=== PATIENT | male | born 1945 | race Caucasian/White ===

== ENCOUNTER 2022-09-01 15:36 | Observation (INO) | payer OTHER ==
[~2022-09-01] VITALS: Ht 177.8 cm; Wt 75.1 kg
[2022-09-01 16:33] LABS: BASOPHILS ABSOLUTE AUTO 0.05 K/mm3 (0.00-0.23); BASOPHILS PERCENT AUTO 0 % (0-2); EOSINOPHILS ABSOLUTE AUTO 0.04 K/mm3 (0.00-0.68); EOSINOPHILS PERCENT AUTO 0 % (0-6); Hematocrit 36.2 % (37.0-53.0); Hemoglobin 12.8 g/dL (13.5-17.5); IMMATURE GRAN PERCENT AUTO 1 % (0-1); LYMPHOCYTES ABSOLUTE AUTO 0.76 K/mm3 (0.84-5.20); LYMPHOCYTES PERCENT AUTO 5 % (21-46); MONOCYTES ABSOLUTE AUTO 0.92 K/mm3 (0.16-1.47); MONOCYTES PERCENT AUTO 6 % (4-13); Mean Corpuscular HGB 29.9 pg (26.0-34.0); Mean Corpuscular HGB Conc 35.4 g/dL (31.5-36.5); Mean Corpuscular Volume 85 fL (80-100); Mean Platelet Volume 10.3 fL (9.1-12.4); NEUTROPHILS ABSOLUTE AUTO 14.59 K/mm3 (1.96-9.15); NEUTROPHILS PERCENT AUTO 89 % (41-73); Platelet Count 385 K/mm3 (150-400); RDW Coefficient Variation 13.3 % (11.7-14.2); RDW Standard Deviation 41.1 fL (35.1-46.3); Red Blood Cell Count 4.28 M/mm3 (4.30-5.90); White Blood Cell Count 16.46 K/mm3 (4.00-11.30)
[2022-09-01 16:51] LABS: Albumin, Blood 2.3 g/dL (3.4-5.0); Albumin/Globulin Ratio 0.5 (0.8-1.8); Bilirubin, Total 0.9 mg/dL (0.1-1.0); Bun/Creatinine Ratio 30.4 (12.0-20.0); Calcium, Blood 9.9 mg/dL (8.5-10.1); Creatinine, Blood 1.15 mg/dL (0.60-1.20); Globulin, Blood 5.1 g/dL (2.2-4.0); Potassium, Blood 4.5 mmol/L (3.5-5.5); Total Protein, Blood 7.4 g/dL (6.4-8.2)
[2022-09-01 22:37] LABS: Source, Urine Clean Catch
[2022-09-01 22:44] LABS: Appearance, Urine Clear (Clear); Bilirubin, Urine Neg (Neg); Blood, Urine Neg (Neg); Color, Urine Yellow (P-Yellow); Glucose Qualitative, Urine Neg (Neg); Ketones, Urine Neg (Neg); Leukocyte Esterase, Urine Neg (Neg); Nitrite, Urine Neg (Neg); Protein, Urine 1+ (Neg); Specific Gravity, Urine 1.015 (1.003-1.022); Urobilinogen, Urine NORM (Normal)
[2022-09-01 23:28] LABS: Influenza A, PCR NEGATIVE (NEGATIVE); Influenza B, PCR NEGATIVE (NEGATIVE); Resp Syncytial Virus, PCR NEGATIVE (NEGATIVE)
[2022-09-01 23:31] LABS: SARS-Cov-2 (COVID-19) PCR, MMC POSITIVE (NEGATIVE)
--- NOTE | 2022-09-02 07:33 | NUR ---
NEW ADMIT/OFFICE SERVICES ASSOCIATE SUMMARY PT ARRIVED T/ROOM AT 0419; A/OX4. LIVES AT HOME W/. NEW ADMIT F/HYPONATREMIA. PT REPORTS GOUT FLARE IN BLE'S, INTENSE PAIN WITH MOVEMENT, AND WEAKNESS. PT IS INDEPENDENT AT BASELINE BUT REQ BEDREST AT THIS TIME. PT XFERED TO BED W/SLIDER SHEET AND 3 STAFF. PT USING URINAL INDEPENDENTLY AND REQ BEDPAIN F/BM. LACTIC ACID 2.5. HX OF DMT2; PT BLOOD SUGARS ELEVATED--CBG 322. CALL T/DR DEE; NEW ORDER FOR FENTANYL 25-50MCG Q4 F/PAIN AND ONE TIME DOSE OF GLARGINE 15 UNITS. ORIENTED PT TO ROOM AND CALL LIGHT. PT PLEASANT AND COOPERATIVE WITH CARE. ABLE TO MAKE NEEDS KNOWN. BED LOCKED/LOW. CALL LIGHT IN REACH.
[2022-09-02 07:58] LABS: BASOPHILS ABSOLUTE AUTO 0.01 K/mm3 (0.00-0.23); BASOPHILS PERCENT AUTO 0 % (0-2); EOSINOPHILS ABSOLUTE AUTO 0.01 K/mm3 (0.00-0.68); EOSINOPHILS PERCENT AUTO 0 % (0-6); Hematocrit 33.1 % (37.0-53.0); Hemoglobin 11.6 g/dL (13.5-17.5); IMMATURE GRAN ABSOLUTE AUTO 0.06 K/mm3 (0.00-0.10); IMMATURE GRAN PERCENT AUTO 1 % (0-1); LYMPHOCYTES ABSOLUTE AUTO 0.53 K/mm3 (0.84-5.20); LYMPHOCYTES PERCENT AUTO 4 % (21-46); MONOCYTES ABSOLUTE AUTO 0.25 K/mm3 (0.16-1.47); MONOCYTES PERCENT AUTO 2 % (4-13); Mean Corpuscular HGB 29.7 pg (26.0-34.0); Mean Corpuscular Volume 85 fL (80-100); Mean Platelet Volume 9.7 fL (9.1-12.4); NEUTROPHILS ABSOLUTE AUTO 11.94 K/mm3 (1.96-9.15); NEUTROPHILS PERCENT AUTO 93 % (41-73); Platelet Count 297 K/mm3 (150-400); RDW Coefficient Variation 13.3 % (11.7-14.2); RDW Standard Deviation 41.1 fL (35.1-46.3)
[2022-09-02 08:18] LABS: Albumin, Blood 2.1 g/dL (3.4-5.0); Albumin/Globulin Ratio 0.5 (0.8-1.8); Bilirubin, Total 0.5 mg/dL (0.1-1.0); Bun/Creatinine Ratio 34.1 (12.0-20.0); Calcium, Blood 9.3 mg/dL (8.5-10.1); Creatinine, Blood 1.35 mg/dL (0.60-1.20); Globulin, Blood 4.5 g/dL (2.2-4.0); Potassium, Blood 4.4 mmol/L (3.5-5.5); Total Protein, Blood 6.6 g/dL (6.4-8.2)
[2022-09-02] MEDS ORDERED: INSULANI (13:22)
[2022-09-02] MEDS ORDERED: ALLO100 PO (13:24)
--- NOTE | 2022-09-02 18:30 | NUR ---
SHIFT SUMMARY- PT IS A/O, PLESANT AND COOPERATIE. HE IS EATING AND DRINKING WELL. HIS BLOOD SUGARS HAVE BEEN ELEVATED AND REQUIRED COVERAGE. ISOLATION FOR COVID HAS BEEN MAINTAINED. HIS SODIUM LEVELS HAVE INCREASED FROM 124 TO 130. HIS BED IS IN THE LOW POSITION AND CALL LIGHT IS WITHIN REACH.
--- NOTE | 2022-09-03 04:25 | NUR ---
RN HOME HEALTH SUMMARY: A&Ox4. PLEASANT AND COOPERATIVE WITH CARE. CALLS APPROPRIATELY AND IS ABLE TO ADVOCATE NEEDS APPROPRIATELY. VOIDING AND STOOLING WITHOUT DIFFICULTY. INDEPENDENT WITH AMBULATION. NO REQUEST FOR PAIN MANAGEMENT FOR GOUT PAIN AND CONTINUES TO BE ASYMPTOMATIC OF COVID Sx. ATE 90% OF DINNER TRAY. BEDTIME GLUCOSE 261 AND ROUTINE 15u LANTUS ADMINISTERED. VSS. SCHEDULED FOR AM LABS. NO ACUTE EVENTS T/O THE NIGHT. WILL REPORT TO ONCOMING RN.
[2022-09-03 06:04] LABS: BASOPHILS ABSOLUTE AUTO 0.02 K/mm3 (0.00-0.23); BASOPHILS PERCENT AUTO 0 % (0-2); EOSINOPHILS ABSOLUTE AUTO 0.13 K/mm3 (0.00-0.68); EOSINOPHILS PERCENT AUTO 1 % (0-6); Hematocrit 32.3 % (37.0-53.0); Hemoglobin 11.6 g/dL (13.5-17.5); IMMATURE GRAN ABSOLUTE AUTO 0.11 K/mm3 (0.00-0.10); IMMATURE GRAN PERCENT AUTO 1 % (0-1); LYMPHOCYTES PERCENT AUTO 15 % (21-46); MONOCYTES ABSOLUTE AUTO 0.75 K/mm3 (0.16-1.47); MONOCYTES PERCENT AUTO 6 % (4-13); Mean Corpuscular HGB 30.3 pg (26.0-34.0); Mean Corpuscular HGB Conc 35.9 g/dL (31.5-36.5); Mean Corpuscular Volume 84 fL (80-100); NEUTROPHILS PERCENT AUTO 76 % (41-73); Platelet Count 347 K/mm3 (150-400); RDW Coefficient Variation 13.3 % (11.7-14.2); RDW Standard Deviation 41.4 fL (35.1-46.3); Red Blood Cell Count 3.83 M/mm3 (4.30-5.90); White Blood Cell Count 11.71 K/mm3 (4.00-11.30)
[2022-09-03 06:28] LABS: Albumin, Blood 2.2 g/dL (3.4-5.0); Anion Gap 7 mmol/L (6-16); Blood Urea Nitrogen 52 mg/dL (8-24); Bun/Creatinine Ratio 41.3 (12.0-20.0); CO2, Blood 24 mmol/L (21-32); Calcium, Blood 9.7 mg/dL (8.5-10.1); Chloride, Blood 101 mmol/L (98-108); Creatinine, Blood 1.26 mg/dL (0.60-1.20); Glomerular Filtration Rate 59 (60-); Glucose, Blood 277 mg/dL (70-99); Potassium, Blood 4.2 mmol/L (3.5-5.5); Sodium, Blood 132 mmol/L (136-145)
--- NOTE | 2022-09-03 18:16 | NUR ---
SHIFT SUMMARY- PT IS A/O, PLESANT AND COOPERATIVE. HE IS EATING AND DRINKING WELL. HE IS VOIDING WELL. PT REPORTED THAT HE FELT CONSTIPATED. BOWEL CARE ORDERED. HIS SODIUM IS TRENDING UP. HE SAT ON THE EDGE OF THE BED FOR MEALS TODAY. PT WORKED WITH HIM THIS SHIFT RECOMENDED SNF UPON DISCHARGE. HIS BED IS IN THE LOW POSITON AND CALL LIGHT IS WITIN REACH.
[2022-09-04 05:49] LABS: Albumin, Blood 2.3 g/dL (3.4-5.0); Anion Gap 8 mmol/L (6-16); Blood Urea Nitrogen 43 mg/dL (8-24); Bun/Creatinine Ratio 38.4 (12.0-20.0); CO2, Blood 25 mmol/L (21-32); Calcium, Blood 9.6 mg/dL (8.5-10.1); Chloride, Blood 103 mmol/L (98-108); Creatinine, Blood 1.12 mg/dL (0.60-1.20); Glomerular Filtration Rate 68 (60-); Glucose, Blood 183 mg/dL (70-99); Phosphorus, Blood 2.2 mg/dL (2.5-4.9); Sodium, Blood 136 mmol/L (136-145)
--- NOTE | 2022-09-04 06:17 | NUR ---
ZOE IS A VERY QUIET GENTLEMAN WHO APPEARS NOT TO WANT TO "BOTHER" ANYONE. HE WILL, WITH SOME COAXING MAKE HIS NEEDS KNOWN TO STAFF WHEN WE ARE IN THE ROOM. NO COMPLAINTS OF PAIN OR DISCOMFORT. VERY FLAT AFFECT. LUNG SOUNDS CLEAR. DIM IN BASES. ROOM AIR. NO VISIBLE SIGNS OF COVID NOTED. URINE CLEAR. GOOD APPETITE
--- NOTE | 2022-09-05 07:14 | NUR ---
NO EXCEPTIONAL CHANGES OF NOTE OVERNIGHT. PATIENT REMAINS VERY DOWN,FLAT CONVERSATION OR ASSESSMENT. OFFERED PATIENT TYLENOL, BUT HE FELT IT "WOULDN'T DO ENOUGH GOOD". 0.5MG FENTANYL WAS GIVEN WITH GOOD RELIEF
--- NOTE | 2022-09-05 12:45 | NUR ---
DR GALLEGOS ROUNDED ON PATIENT, MEDICATED FOR CONSTIPATION WITH MOM AND SUPP, PATIENT EATING LUNCH NOW, NO ACUTE CHANGES
--- NOTE | 2022-09-05 18:18 | NUR ---
ALERT AND ORIENTED, MAKES NEEDS KNOWN, USES CALL LLIGHT, WORKED WITH PT TODAY WITH STAIRS. AT BEDSIDE, PATIENT TO BE DISCHARGED ON WEDNESDAY [facility] MEDICATED WITH TYLENOL X 2 TODAY FOR ANDREW LOWER LEG PAIN. STAND BY ASSIST TO THE BATHROOM, MEDICATED WITH MOM AND DOLCULAX SUPP. CALL LIGHT WITH IN REACH, WILL RELAY TO PM RN
--- NOTE | 2022-09-06 03:25 | NUR ---
ZOE APPEARS TO FEEL A LITTLE BETTER THIS EVENING. HE HAS ONLY REQUIRED TYLENOL OPPOSED TO THE FENTANYL HE WAS RECEIVING LAST NIGHT. AFFECT ALSO IMPROVED. PATIENT DID NOT SEEM TO BE SO FLAT OR DEPRESSED. SLEPT WELL OVERNIGHT. STILL NO S/S OF COVID.
--- NOTE | 2022-09-06 18:23 | NUR ---
NO ACUTE CHANGES, PLAN FOR DISCHARGE HOME TOMORROW WITH HOME HEALTH, AT BEDSIDE HELPFUL WITH CARE, WORKED WITH PT, DID STAIRS- LEFT LEG WEAKER THAN RIGHT. CALL LIGHT WITH IN REACH
--- NOTE | 2022-09-07 05:43 | NUR ---
PATIENT REMAINS UNCHANGED. STILL PAINFUL WITH MINIMAL AMBULATION. REQUIRED NO IV PAIN MEDICATION OVERNIGHT. ZOE IS VERY QUIET AND TO HIMSELF. NERVOUS ABOUT GOING HOME TODAY
[2022-09-07] MEDS ORDERED: HUMALOG KW100 UNIT/1 SC (12:19)
[2022-09-07] MEDS ORDERED: Prednisone10 MG PO (12:20)
[2022-09-07] MEDS ORDERED: OMEP20ER PO (12:22)
--- NOTE | 2022-09-07 14:33 | NUR ---
DISCHARGE NOTE PT DISCHARGED TO HOME WITH HOME HEALTH TO HIS . PT WAS TRANSFERRED TO HIS 'S VEHICLE VIA WHEELCHAIR. HIS IV WAS REMOVED BY LAST PUTTER AWAY SUCCESSFULLY. PT WAS PROVIDED DISCHARGE EDUCATION AND MEDICATIONS WERE FAXED TO THE PHARMACY OF HIS CHOICE. ALL HIS BELONGINGS WERE TAKEN WITH HIM.
== END 2022-09-07 14:19 | disposition home health service (06) ==
LOC: ER 15:36 → MEDS 15:37 → ERHOLD 15:37 → MEDS 15:37
PROVIDERS: Emergency Medicine; Family Medicine; Internal Medicine; ADMIT Internal Medicine
DX: M10.9 Gout, unspecified (principal); E87.1 Hypo-osmolality and hyponatremia; D64.9 Anemia, unspecified; U07.1 COVID-19; F31.9 Bipolar disorder, unspecified; Z79.4 Long term (current) use of insulin; D63.1 Anemia in chronic kidney disease; K59.00 Constipation, unspecified; Z20.822 Contact with and (suspected) exposure to COVID-19
CPT/HCPCS: 0241U; 36415; 71045; 80053; 80069; 82947; 83605; 83735; 84550; 85025; 87040; 93005; 93010; 96372; 96374; 96375; 97110; 97116; 97162; 97530; 99285-25; A9270; G0378; J0696; J1650; J1815; J3010; J7030; J7512

== ENCOUNTER 2023-02-15 13:49 | Inpatient (IN) | payer OTHER ==
[~2023-02-15] VITALS: Ht 180.3 cm; Wt 75.0 kg
[~2023-02-15 13:49] MED LIST: ALLO100 PO; HUMALOG KW100 UNIT/1 SC; INSULANI SC; OMEP20ER PO; Prednisone10 MG PO
[2023-02-15 14:35] LABS: BASOPHILS ABSOLUTE AUTO 0.04 K/mm3 (0.00-0.23); BASOPHILS PERCENT AUTO 0 % (0-2); EOSINOPHILS PERCENT AUTO 0 % (0-6); Hematocrit 39.7 % (37.0-53.0); Hemoglobin 13.8 g/dL (13.5-17.5); IMMATURE GRAN PERCENT AUTO 1 % (0-1); LYMPHOCYTES ABSOLUTE AUTO 0.55 K/mm3 (0.84-5.20); LYMPHOCYTES PERCENT AUTO 3 % (21-46); MONOCYTES PERCENT AUTO 7 % (4-13); Mean Corpuscular HGB Conc 34.8 g/dL (31.5-36.5); Mean Corpuscular Volume 86 fL (80-100); Mean Platelet Volume 10.9 fL (9.1-12.4); NEUTROPHILS ABSOLUTE AUTO 16.75 K/mm3 (1.96-9.15); NEUTROPHILS PERCENT AUTO 89 % (41-73); Platelet Count 192 K/mm3 (150-400); RDW Coefficient Variation 14.3 % (11.7-14.2); RDW Standard Deviation 44.6 fL (35.1-46.3); White Blood Cell Count 18.84 K/mm3 (4.00-11.30)
[2023-02-15 14:42] LABS: Albumin, Blood 3.6 g/dL (3.4-5.0); Albumin/Globulin Ratio 0.8 (0.8-1.8); Bilirubin, Total 1.9 mg/dL (0.1-1.0); Bun/Creatinine Ratio 16.8 (12.0-20.0); Calcium, Blood 9.6 mg/dL (8.5-10.1); Creatinine, Blood 1.25 mg/dL (0.60-1.20); Globulin, Blood 4.4 g/dL (2.2-4.0); Potassium, Blood 3.7 mmol/L (3.5-5.5)
[2023-02-15 17:02] LABS: Source, Urine Clean Catch
[2023-02-15 17:06] LABS: Appearance, Urine Clear (Clear); Bilirubin, Urine Neg (Neg); Blood, Urine 2+ (Neg); Color, Urine Amber (P-Yellow); Glucose Qualitative, Urine Neg (Neg); Ketones, Urine 2+ (Neg); Leukocyte Esterase, Urine Neg (Neg); Nitrite, Urine Neg (Neg); Protein, Urine 2+ (Neg); Specific Gravity, Urine 1.015 (1.003-1.022); Urobilinogen, Urine NORM (Normal)
[2023-02-15 17:18] LABS: Hyaline Casts 0-2 /lpf (0-2); Red Blood Cells, Urine 0-2 /hpf (0-2); Squamous Epithelial Cells Few /hpf (Few); White Blood Cells, Urine 0-2 /hpf (0-5)
[2023-02-15 17:19] LABS: Bacteria Few /hpf
[2023-02-15 18:21] LABS: Body Fluid Crystals NEG (NEGATIVE)
[2023-02-15 18:59] LABS: BODY FLUID RBC 0.003 M/mm3 (0-0)
[2023-02-15 19:10] LABS: RBC Count, Synovial Fluid 3000 /mm3 (0-0); WBC Count, Synovial Fluid 16320 /mm3 (0-180)
[2023-02-15 19:45] LABS: Lymphs, Synovial Fluid 1 % (0-15); Monocytes/Macrophages, Synovia 24 % (0-65); Neutrophils, Synovial Fluid 75 % (0-24)
[2023-02-15 19:46] LABS: Appearance, Synovial Fluid Cloudy (Clear); Color, Synovial Fluid Yellow (None-P Yel)
[2023-02-15 20:52] LABS: Influenza A, PCR NEGATIVE (NEGATIVE); Influenza B, PCR NEGATIVE (NEGATIVE); Resp Syncytial Virus, PCR NEGATIVE (NEGATIVE); SARS-Cov-2 (COVID-19) PCR, MMC NEGATIVE (NEGATIVE)
--- NOTE | 2023-02-15 21:58 | NUR ---
ADMIT NOTE 77 YR OLD MALE ADMITTED TO FLOOR FROM THE ED WITH DX OF SEPTIC ARTHRITIS. ED RN REPORTED RIGHT KNEE DRAINED OF FLUID AND BANDAID APPLIED. ALERT AND ORIENTED X 4. HX OF DM, GOUT AND HTN. ORIENTED TO USE OF CALL LIGHT. CALL LIGHT IN REACH.
[2023-02-15 22:43] VITALS: BP 128/94
[2023-02-15] MEDS ORDERED: METF500C PO (23:43)
[2023-02-15] MEDS ORDERED: ABILIFY MYCITE10 M2 PO (23:45)
[2023-02-15] MEDS ORDERED: COLCHICINE0.6 MG PO (23:49)
[2023-02-15] MEDS ORDERED: SENNA LAXATIVE8.6 MG PO (23:51)
[2023-02-15] MEDS ORDERED: OMEP20ER PO (23:52)
[2023-02-15] MEDS ORDERED: IBUP200 PO (23:53)
[2023-02-16 02:54] VITALS: BP 108/69
--- NOTE | 2023-02-16 03:25 | NUR ---
WET END OPERATOR SUMMARY VSS. ADMITTED EARLIER WITH RIGHT KNEE SEPTC ARTHRITIS AFTER KNEE FLUID DRAINED IN ED. PAIN MED ADMINISTERED - SEE MAR FOR DETAILS, MED EFFECTIVE, HAS BEEN RESTING QUIETLY WITH FEW INTERRUPTIONS. IVF OF NS INFUSING AT 125 ML/HR. VOIDING QS. MONITORING GLUCOSE LEVELS Q 6 HR. CALL LIGHT IN REACH. WILL CONTINUE TO MONITOR.
[2023-02-16 06:14] LABS: BASOPHILS ABSOLUTE AUTO 0.04 K/mm3 (0.00-0.23); BASOPHILS PERCENT AUTO 0 % (0-2); EOSINOPHILS ABSOLUTE AUTO 0.04 K/mm3 (0.00-0.68); EOSINOPHILS PERCENT AUTO 0 % (0-6); Hemoglobin 12.1 g/dL (13.5-17.5); IMMATURE GRAN ABSOLUTE AUTO 0.05 K/mm3 (0.00-0.10); IMMATURE GRAN PERCENT AUTO 0 % (0-1); LYMPHOCYTES ABSOLUTE AUTO 1.74 K/mm3 (0.84-5.20); LYMPHOCYTES PERCENT AUTO 14 % (21-46); MONOCYTES ABSOLUTE AUTO 1.15 K/mm3 (0.16-1.47); MONOCYTES PERCENT AUTO 9 % (4-13); Mean Corpuscular HGB 29.8 pg (26.0-34.0); Mean Corpuscular HGB Conc 34.6 g/dL (31.5-36.5); Mean Corpuscular Volume 86 fL (80-100); NEUTROPHILS ABSOLUTE AUTO 9.32 K/mm3 (1.96-9.15); NEUTROPHILS PERCENT AUTO 76 % (41-73); Platelet Count 162 K/mm3 (150-400); RDW Coefficient Variation 14.2 % (11.7-14.2); Red Blood Cell Count 4.06 M/mm3 (4.30-5.90); White Blood Cell Count 12.34 K/mm3 (4.00-11.30)
[2023-02-16 06:42] LABS: Albumin, Blood 2.8 g/dL (3.4-5.0); Albumin/Globulin Ratio 0.8 (0.8-1.8); Bun/Creatinine Ratio 17.5 (12.0-20.0); Creatinine, Blood 1.03 mg/dL (0.60-1.20); Globulin, Blood 3.7 g/dL (2.2-4.0); Magnesium, Blood 1.6 mg/dL (1.6-2.4); Potassium, Blood 3.8 mmol/L (3.5-5.5); Total Protein, Blood 6.5 g/dL (6.4-8.2)
[2023-02-16 07:59] VITALS: BP 121/63
[2023-02-16 15:14] VITALS: BP 137/75
--- NOTE | 2023-02-16 16:25 | NUR ---
DR JONA TENORIO CAME TO SEE PT. PLAN TO I&D RIGHT KNEE TOMORROW. NPO AFTER MIDNIGHT. CONTINUE POC.
--- NOTE | 2023-02-16 18:08 | NUR ---
EVENING THE AFTERNOON HAS WORN ON. PT HAS BECOME MORE PICKY, FIGITY, AND NEEDING REOEINTATION. AFTER DR TENORIO CAME. PT WANTED TO GET UP," GET HIS TOOLS TO GO HELP DR TENORIO." A BIT MORE FRETFUL. HE HAS REFUSED DINNER BECUSE HES GOING FOR SURGERY TONIGHT. REORIENTED TO TIME AND EVENT. BED ALARM ON. CONMTINUE POC.
[2023-02-16 19:23] VITALS: BP 147/89
[2023-02-17] VITALS (18 sets, daily range): BP systolic 87–133; BP diastolic 56–81
--- NOTE | 2023-02-17 04:30 | NUR ---
WET PROCESS TECHNICIAN SUMMARY NO ACUTE EVENTS THIS SHIFT. A&O TO SELF. PATIENT EFFECTIVELY COMMUNICATES NEEDS. RR EVEN AND UNLABORED ON RA. VSS. NS INFUSING @ 125ML/HR. APAP ADMINISTERED PER EMAR. CONTINENT WITH ASSISTANCE AND VOIDING WELL. PATIENT NOTED TO SLEEP WELL THROUGHOUT THE SHIFT WITHOUT ACUTE CONCERNS. BED LOW AND LOCKED. BED ALARM ON FOR SAFETY. CALL LIGHT WITHIN REACH. THIS RN WILL CONTINUE TO MONITOR.
[2023-02-17 05:14] LABS: BASOPHILS ABSOLUTE AUTO 0.03 K/mm3 (0.00-0.23); BASOPHILS PERCENT AUTO 0 % (0-2); EOSINOPHILS ABSOLUTE AUTO 0.04 K/mm3 (0.00-0.68); EOSINOPHILS PERCENT AUTO 0 % (0-6); Hematocrit 34.7 % (37.0-53.0); IMMATURE GRAN ABSOLUTE AUTO 0.05 K/mm3 (0.00-0.10); IMMATURE GRAN PERCENT AUTO 0 % (0-1); LYMPHOCYTES ABSOLUTE AUTO 1.26 K/mm3 (0.84-5.20); LYMPHOCYTES PERCENT AUTO 10 % (21-46); MONOCYTES ABSOLUTE AUTO 1.04 K/mm3 (0.16-1.47); MONOCYTES PERCENT AUTO 8 % (4-13); Mean Corpuscular HGB 29.9 pg (26.0-34.0); Mean Corpuscular HGB Conc 34.6 g/dL (31.5-36.5); Mean Corpuscular Volume 86 fL (80-100); Mean Platelet Volume 10.6 fL (9.1-12.4); NEUTROPHILS ABSOLUTE AUTO 10.48 K/mm3 (1.96-9.15); NEUTROPHILS PERCENT AUTO 81 % (41-73); Platelet Count 154 K/mm3 (150-400); RDW Coefficient Variation 14.2 % (11.7-14.2); RDW Standard Deviation 44.2 fL (35.1-46.3); Red Blood Cell Count 4.02 M/mm3 (4.30-5.90)
[2023-02-17 05:51] LABS: Bun/Creatinine Ratio 11.9 (12.0-20.0); Calcium, Blood 9.3 mg/dL (8.5-10.1); Creatinine, Blood 1.18 mg/dL (0.60-1.20)
[2023-02-17 08:28] LABS: Vancomycin, Trough 9.7 ug/mL (5.0-10.0)
--- NOTE | 2023-02-17 18:48 | NUR ---
SHIFT SUMMARY PT OUT TO I AND D OF R KNEE AND RETURNED APPROX 1800. ANTONIETTA WRAP ON WITH CHRISTINE IN PLACE WITH SMALL AMOUT OF SANGUINESS DRAINAGE. AWAKE AND ALERT. SUPPER ORDERED AND INSULIN GIVEN.
--- NOTE | 2023-02-18 04:49 | NUR ---
CAMPAIGN CONSULTANT SUMMARY NO ACUTE EVENTS THIS SHIFT. A&OX4. PATIENT EFFECTIVELY COMMUNICATES NEEDS. VSS. RR EVEN AND UNLABORED ON RA. SPO2 >92%. NO REPORTS OF PAIN. NS INFUSING @ 125ML/HR. PATIENT IS TOELRATING ABO THERAPY. CBG >350; REFER TO EMAR FOR INSULIN COVERAGE. RIGHT LE WITH OVERLYING ANTONIETTA-WRAP DRESSING AND CHRISTINE DRAIN, WHICH HAS MINIMAL BLOODY DRAINAGE TO COLLECTION BULB. PATIENT APPEARED TO SLEEP THROUGHOUT THE NIGHT WITHOUT ANY ACUTE CONCERNS. BED LOW AND LOCKED. CALL LIGHT WITHIN REACH. THIS RN WILL CONTINUE TO MONITOR.
[2023-02-18 08:45] LABS: Vancomycin, Trough 17.3 ug/mL (5.0-10.0)
[2023-02-18 09:36] VITALS: BP 112/68
[2023-02-18 14:25] VITALS: BP 118/67
--- NOTE | 2023-02-18 16:27 | NUR ---
PATIENT IS ALERT AND ORIENTED AND COOPERATIVE WITH CARE. PATIENT STATES HIS PAIN IS TOLERABLE, HE HASNT REQUIRED ANY PAIN MEDICATION THIS SHIFT. PATIENT WORKED WITH PT THIS MORNING AND WAS ABLE TO STAND AND SIT ON THE EOB. HE SITS ON THE EOB FOR MEALS. PATIENT IS CONCERNED THAT HIS BLOOD SUGARS HAVE BEEN SO HIGH HERE IN THE HOSPITAL. NO NEW CONCERNS TODAY. WILL CONTINUE TO MONITOR
[2023-02-18 17:28] VITALS: BP 125/66
[2023-02-18 19:54] VITALS: BP 115/64
[2023-02-18 22:39] VITALS: BP 130/71
[2023-02-18 22:40] VITALS: BP 130/71
[2023-02-19 04:28] VITALS: BP 135/70
[2023-02-19 07:17] VITALS: BP 127/67
[2023-02-19 09:21] LABS: Vancomycin, Trough 22.2 ug/mL (5.0-10.0)
[2023-02-19 16:21] VITALS: BP 118/62
[2023-02-19 19:47] VITALS: BP 117/69
--- NOTE | 2023-02-19 23:26 | NUR ---
START OF SHIFT THIS STUDENT NURSE ASSUMED CARE OF PT AT 1900 UNDER THE OBSERVATION OF NURSE CLAUDY CHO. PT VERBALIZED PAIN COMMING BACK, TYLENOL AND OXYCODONE ADMINISTERED, PT VERBALIZED AN IMPROVEMENT OF PAIN AFTERWARDS. HS MEDS ADMINISTERED, ROCEPHIN ADMINISTERED VIA IV. PT A&O X4. VSS. N/S RUNNING AT 125ML/HR. PT LEFT IN A POSITION OF SAFETY AND COMFORT WITH BED IN LOW POSITION, BREAKS ON, ROOM FREE OF CLUTTER, BED RAILS RAISED, NONSKID SOCKS IN PLACE, AND CALL LIGHT WITHIN REACH. WILL CONTINUE TO MONITOR THROUGHOUT MY SHIFT.
[2023-02-20 03:49] VITALS: BP 121/65
--- NOTE | 2023-02-20 04:24 | NUR ---
SHIFT SUMMARY THIS STUDENT NURSE ADDRESSED THE PT'S SEPTIC ARTHRITIS BY ADMINISTERING THE PRESCRIBED ANTIBIOTICS, ASSESSING FOR S/S OF WORSENING INFECTION, S/S OF INFECTION OF THE DRAIN TUBE, AND BY PROVIDING DRESSING CHANGES NEEDED. PT A&O X4. VSS. N/S INFUSING VIA IV AT 125ML/HR. PT'S COMPLAINTS OF PAIN ADRESSED WITH PRESCRIBED TYLENOL AND OXYCODONE, ALONG WITH REPOSITIONING. PT SLEPT PART OF SHIFT. PT REMAINED IN A POSITION OF COMFORT AND SAFETY. WILL CONTINUE TO MONITOR PT THROUGH THE SHIFT.
--- NOTE | 2023-02-20 05:55 | NUR ---
CTA/PRINTED CIRCUIT BOARDS SOLDER LEVELER I HAVE READ THIS PRINTED CIRCUIT BOARDS SOLDER LEVELER'S DOCUMENTATION AND I AGREE. SHIFT SUMMARY LOCATED UNDER PRINTED CIRCUIT BOARDS SOLDER LEVELER NOTE
[2023-02-20 07:29] VITALS: BP 143/74
--- NOTE | 2023-02-20 09:00 | NUR ---
PT PLEASANT COOP A/O X4, STATES MIN PAIN AT THIS TIME. CHRISTINE DRAIN INTACT. MIN S/S FLUID IN CHRISTINE DRAIN. H/R REG, NO MURMUR NOTED. NO TELE. TRACE EDEMA NOTED BLE. LUNGS CLEAR, RESP EASY, UNLABORED, ON R/A. BT X4 LAST BM YEST PER PT. VOIDS 1 ASST G/BELT, FWW TO KEEP MIN TOUCH ON RT LEG. BED IN LOW POSITIOON, CALL LITE IN REACH, CALLS APPROP
--- NOTE | 2023-02-20 10:18 | NUR ---
SPOKE TO DR SANDERS. OKAY STOP IVF
[2023-02-20 14:58] VITALS: BP 139/75
--- NOTE | 2023-02-20 15:38 | NUR ---
DR CRUZ CALLED TO [facility]VISE MOLECULAR BIOLOGIST FROM [facility] TO COME TO PULL CHRISTINE DRAIN. MINIMAL DRAIN. LESS THAN 5 CC THIS AM. CALLED [facility] CHARGE SHE TO COME THIS AFT.
--- NOTE | 2023-02-20 16:28 | NUR ---
CHRISTINE DRAIN REMOVAL CHRISTINE DRAIN ON R KNEE REMOVED WITHOUT DIFFICULTY, PT TOLERATED WELL, SCANT SEROUS DRAINAGE NOTED, 4X4 GAUZE APPLIED AND RE-WRAPPED W/ ANTONIETTA WRAP.
[2023-02-20 19:18] VITALS: BP 119/68
--- NOTE | 2023-02-20 19:46 | NUR ---
PT QUITE PLEASANT TODAY. DID MED FOR PAIN ONCE MID-DAY. DR ARCEO HAD SURGICAL FLOOR OPHTHALMIC MEDICAL TECHNOLOGIST PULL THE CHRISTINE DRAIN THIS AFT. PT ROBERTA WELL. NO DRAINING THROUGH WRAP NOTED BY END OF SHIFT. IN TO VISIT TODAY. NO OTHER NEW CONCERNS NOTED. BED IN LOW POSITION, CALL LITE IN REACH, CALLS APPRP
[2023-02-21 01:48] LABS: Vancomycin, Trough 22.4 ug/mL (5.0-10.0)
[2023-02-21 02:29] VITALS: BP 141/75
--- NOTE | 2023-02-21 05:31 | NUR ---
SHIFT SUMMARY PT ADMIT FOR SEPTIC ARTHERITIS. A&O X4. FLUIDS AND CHRISTINE DRAIN DC'D LAST SHIFT. HAS SLIGHT EDEMA IN BLE. USES FWW TO AMBULATE. ANTIBIOTICS CHANGED TO VANCO STARTING 0600 THIS SHIFT. PT SLEPT MOST OF NIGHT, WAKING TO USE URINAL AND FOR SWAGING MACHINE OPERATOR. PLEASANT AND COOPERATIVE.
[2023-02-21 07:51] VITALS: BP 139/72
[2023-02-21 15:41] VITALS: BP 118/65
--- NOTE | 2023-02-21 18:22 | NUR ---
PT QUITE PLEASANT TODAY. HAS TOLERATED HIS RT KNEE PRETTY WELL TODAY. HE HAS REQUESTED PAIN COVERAGE TWICE TODAY. NO DRAINING NOTED THROUGH DRESSINGS. STILL MINIMAL AMBULATIONS WIGH FWW. PT STATES THAT DR WORKMAN LIKELY NEED ABOUT 3 MORE DAYS ABX TREATMENT. NO NEW CONCERNS NOTED. BED IN LOW POSITION, CALL LITE IN REACH, CALLS APPROP
[2023-02-21 19:33] VITALS: BP 130/70
--- NOTE | 2023-02-22 04:06 | NUR ---
AURICULAR ACUPUNCTURIST SUMMARY NO ACUTE EVENTS THIS SHIFT. A&OX4. PATIENT EFFECTIVELY COMMUNICATES NEEDS. VSS. RR EVEN AND UNLABORED ON RA. OVERLYING ANTONIETTA-WRAP TO RLE C/D/I; CHRISTINE DRAIN REMOVED 02/20. NO PAIN REPORTED THIS SHIFT. PATIENT NOTED TO SLEEP WELL THROUGHOUT THE NIGHT WITHOUT ANY ACUTE CONCERNS. BED LOW AND LOCKED. CALL LIGHT WITHIN REACH. THIS RN WILL CONTINUE TO MONITOR.
[2023-02-22 04:26] VITALS: BP 140/74
[2023-02-22 07:46] VITALS: BP 126/70
--- NOTE | 2023-02-22 09:00 | NUR ---
PT PLEASANT COOP A/O X4 STATES PAIN UP A LITTLE THIS AM. MED PER EMAR. H/R REG, NO MURMUR NOTED, TRACE EDEMA FEET BILAT. LUNGS CLEAR, RESP EASY, UNLABORED. ON R.A. BT X4 LAST BM ABOUT 3 DAYS PER PT. STATES NOT SURE. VOIDS 1 ASST TO BATHROOM OR URINAL. ABLE TO AMBULATE WITH FWW. 1 ASST. PT RT KNEE WRAPPED CDI. BED IN LOW POSITION, CALL LITE IN REACH, CALLS APPROP
[2023-02-22 16:02] VITALS: BP 114/77
--- NOTE | 2023-02-22 18:18 | NUR ---
PT PLEASANT COOP TODAY. MED FOR PAIN ONCE TODAY. NO NEW COMPLAINTS. IN TO VISIT TODAY. CONTINUES TO BE ABLE TO AMBULATE NEEDED. BED IN LOW POSITION, CALL LITE IN REACH, CALLS APPROP
[2023-02-22 19:29] VITALS: BP 116/65
--- NOTE | 2023-02-23 04:09 | NUR ---
PLATE AND FRAME FILTER OPERATOR SUMMARY NO ACUTE EVENTS THIS SHIFT. A&OX4. PATIENT EFFECTIVELY COMMUNICATES NEEDS. VSS. RR EVEN AND UNLABORED ON RA. PAIN ASSESSED AND MEDICATED PER EMAR. OVERLYING DRESSINGTO RLE IS C/D/I. PER RECORDS, THE PLAN IS FOR THE PHYSICAN TO SPEAK WITH THE PATIENT TODAY REGARDING CONTINUED IV ABO THERAPY. BED LOW AND LOCKED. CALL LIGHT WITHIN REACH. THIS RN WILL CONTINUE TO MONITOR.
[2023-02-23 04:25] VITALS: BP 130/70
[2023-02-23 08:49] VITALS: BP 118/75
[2023-02-23 12:21] LABS: SARS-Cov-2 (COVID-19) PCR, MMC NEGATIVE (NEGATIVE)
[2023-02-23] MEDS ORDERED: Acetaminophen650 M1 PO (12:53)
[2023-02-23] MEDS ORDERED: VISBIOME 112.51 EACH PO (12:55)
[2023-02-23] MEDS ORDERED: CEFAZOLIN2 GM/50 M3 IV (12:55)
[2023-02-23] MEDS ORDERED: OXAYDO5 M1 PO (12:56)
--- NOTE | 2023-02-23 16:32 | NUR ---
DC- PT LEFT IN WC W/TRANSPORT WITH ALL BELONGINGS IN STABLE CONDITION. REPORT GIVEN TO NATALIIA, NURSE AT [facility]. ALL QUESTIONS ANSWERED. HARD SCRIPT GIVEN TO PT IN PACKET.
== END 2023-02-23 16:21 | DRG 872 ==
LOC: ER 13:49 → MEDS 20:07 → ENPENDDIS 02-23 11:37 → MEDS 02-23 16:21
PROVIDERS: Internal Medicine; Nurse Practitioner Acute Care; Orthopaedic Surgery; Student in an Organized Health Care Education/Training Program; ADMIT Internal Medicine
PROC: 3E1U48Z Irrigation of Joints using Irrigating Substance, Percutaneous Endoscopic Approach (ICD-10-PCS; principal; 2023-02-17 15:00)
DX: A41.9 Sepsis, unspecified organism (principal); M00.061 Staphylococcal arthritis, right knee; Z20.822 Contact with and (suspected) exposure to COVID-19; E11.9 Type 2 diabetes mellitus without complications; K21.9 Gastro-esophageal reflux disease without esophagitis; B95.61 Methicillin susceptible Staphylococcus aureus infection as the cause of diseases classified elsewhere; F31.9 Bipolar disorder, unspecified; I10 Essential (primary) hypertension; M10.9 Gout, unspecified; Z90.49 Acquired absence of other specified parts of digestive tract; Z79.4 Long term (current) use of insulin; Z79.899 Other long term (current) drug therapy; R65.20 Severe sepsis without septic shock
CPT/HCPCS: 0241U; 20610; 36415; 71045; 73522; 73562-RT; 80048; 80053; 80202; 81001; 82565; 82947; 83605; 83735; 85025; 86140; 86430; 86431; 87040; 87070; 87075; 87077; 87147; 87186; 87205; 89051; 89060; 93005; 93010; 96361-59; 96365-59; 96367-59; 96376-59; 97110; 97116; 97162; 97530; 99285-25; A9270; J0690; J0696; J1100; J1815; J2405; J2704; J2765; J3010; J3370; J7030; U0002

== ENCOUNTER 2023-05-25 16:18 | Emergency (ER) | payer OTHER ==
[~2023-05-25] VITALS: Ht 177.8 cm; Wt 61.2 kg
[~2023-05-25 16:18] MED LIST changes: +ABILIFY MYCITE10 M2 PO; +Acetaminophen650 M1 PO; +CEFAZOLIN2 GM/50 M3 IV; +COLCHICINE0.6 MG PO; +IBUP200 PO; +METF500C PO; +OXAYDO5 M1 PO; +SENNA LAXATIVE8.6 MG PO; +VISBIOME 112.51 EACH PO
[2023-05-25 16:48] LABS: BASOPHILS ABSOLUTE AUTO 0.05 K/mm3 (0.00-0.23); BASOPHILS PERCENT AUTO 1 % (0-2); EOSINOPHILS PERCENT AUTO 1 % (0-6); Hematocrit 41.3 % (37.0-53.0); Hemoglobin 13.9 g/dL (13.5-17.5); IMMATURE GRAN ABSOLUTE AUTO 0.03 K/mm3 (0.00-0.10); IMMATURE GRAN PERCENT AUTO 0 % (0-1); LYMPHOCYTES PERCENT AUTO 31 % (21-46); MONOCYTES ABSOLUTE AUTO 0.49 K/mm3 (0.16-1.47); MONOCYTES PERCENT AUTO 5 % (4-13); Mean Corpuscular HGB 29.3 pg (26.0-34.0); Mean Corpuscular HGB Conc 33.7 g/dL (31.5-36.5); Mean Corpuscular Volume 87 fL (80-100); Mean Platelet Volume 9.6 fL (9.1-12.4); NEUTROPHILS ABSOLUTE AUTO 5.64 K/mm3 (1.96-9.15); NEUTROPHILS PERCENT AUTO 62 % (41-73); Platelet Count 454 K/mm3 (150-400); RDW Coefficient Variation 15.1 % (11.7-14.2); Red Blood Cell Count 4.74 M/mm3 (4.30-5.90); White Blood Cell Count 9.11 K/mm3 (4.00-11.30)
[2023-05-25 17:37] LABS: Albumin, Blood 3.8 g/dL (3.4-5.0); Albumin/Globulin Ratio 0.9 (0.8-1.8); Bilirubin, Total 0.5 mg/dL (0.1-1.0); Bun/Creatinine Ratio 15.7 (12.0-20.0); Calcium, Blood 10.7 mg/dL (8.5-10.1); Creatinine, Blood 1.08 mg/dL (0.60-1.20); Globulin, Blood 4.2 g/dL (2.2-4.0); Potassium, Blood 3.9 mmol/L (3.5-5.5)
[2023-05-25 22:16] VITALS: BP 117/68
== END 2023-05-25 22:16 | disposition home or self-care (01) ==
LOC: ER 16:18
PROVIDERS: Student in an Organized Health Care Education/Training Program
DX: E83.42 Hypomagnesemia (principal); I10 Essential (primary) hypertension; E11.9 Type 2 diabetes mellitus without complications; Z79.899 Other long term (current) drug therapy; Z79.84 Long term (current) use of oral hypoglycemic drugs
CPT/HCPCS: 80053; 83735; 85025; 96365; 99284-25; J3475